=== PATIENT | male | born 1965 | race African-American/Black ===

== ENCOUNTER 2018-10-02 07:01 | Day surgery (SDC) | payer MEDICARE, MEDICAID ==
[~2018-10-02] VITALS: Ht 177.8 cm; Wt 89.8 kg
[~2018-10-02 07:01] MED LIST: ALLO100T PO; B CO1TAB3 PO; CARV12.544 PO; NIFE30TA76 PO; PANT40T PO; SEVE800T8 PO; SIMV-13 PO
[2018-10-02] MEDS ORDERED: LIDOCAINE VISCOUS 2% 15ML UD MT ONE (07:30)
[2018-10-02] MEDS ORDERED: fentaNYL CITRATE 100 MCG/2 ML VL IV ONE (07:30)
[2018-10-02] MEDS ORDERED: IODIXANOL 320MG/ML 100ML BTL IV ONE (07:30)
[2018-10-02] MEDS ORDERED: MIDAZOLAM HCL 1MG/1ML-2 ML VIAL IV ONE (07:30)
[2018-10-02] MEDS ORDERED: LIDOCAINE 2%HCL (LOCAL ANESTH.) INJ 20ML MDV ONE (07:30)
[2018-10-02] MEDS ORDERED: ANGIOMAX 250 MG VIAL IV ONE ×2 (07:43→08:22)
[2018-10-02] MEDS ORDERED: SODIUM CHL 0.9% 0 ML ONE ×2 (07:43→08:22)
[2018-10-02] MEDS ORDERED: ACETAMINOPHEN 500 MG TAB PO PRN (10:15)
[2018-10-02] MEDS ORDERED: ONDANSETRON HCL 4 MG/2 ML VIAL IV PRN (10:15)
[2018-10-02] MEDS ORDERED: HYDROcodone-ACET 5/325MG TAB PO PRN (10:15)
== END 2018-10-02 11:25 | disposition home or self-care (01) ==
LOC: CATH 07:01
PROVIDERS: ATTEND Internal Medicine
DX: I25.10 Atherosclerotic heart disease of native coronary artery without angina pectoris (principal); I10 Essential (primary) hypertension; Z79.899 Other long term (current) drug therapy; Z98.890 Other specified postprocedural states; Z99.2 Dependence on renal dialysis
CPT/HCPCS: 93312; 93460; A6257; C1760; C1769; C1894; J1644; J2250; J3010; J7030; Q9967; 99152; 99153